=== PATIENT | female | born 1955 | race Caucasian/White ===

== ENCOUNTER → 2017-02-17 | Outpatient (CLI) | payer OTHER | LOC: KOH-I 13:10 | DX: M25.562 Pain in left knee (principal); M25.861 Other specified joint disorders, right knee | CPT/HCPCS: 73562 ==

== ENCOUNTER → 2017-03-13 | Outpatient (CLI) | payer OTHER | LOC: KOH-I 14:30 | DX: M25.561 Pain in right knee (principal); M17.11 Unilateral primary osteoarthritis, right knee; S83.411A Sprain of medial collateral ligament of right knee, initial encounter | CPT/HCPCS: 73721 ==

== ENCOUNTER → 2017-07-02 | Outpatient (CLI) | payer OTHER | LOC: MAMO 13:40 | DX: Z12.31 Encounter for screening mammogram for malignant neoplasm of breast (principal) | CPT/HCPCS: G0202 ==

== ENCOUNTER → 2021-02-21 | Outpatient (CLI) | payer OTHER ==
[~2021-02-21] MED LIST: AVAPRO300 MG PO; CENTANY30 GM TD; CLOTRIMAZOLE-BE30 ML TD; FLEXERIL 10 MG10 MG PO; GABAPENTIN300 MG PO; HYDROCHLOROTHIA25 MG PO; LIPITOR TAB 1010 MG PO; LOPRESSOR50 MG PO; RELAFEN 750 MG750 MG PO; SYNTHROID100 MCG PO; ULTRAM50 MG PO
== END ==
LOC: HEART 5 15:21
DX: I11.9 Hypertensive heart disease without heart failure (principal); R60.9 Edema, unspecified; I08.1 Rheumatic disorders of both mitral and tricuspid valves; I27.20 Pulmonary hypertension, unspecified; Z79.899 Other long term (current) drug therapy
CPT/HCPCS: 93306

== ENCOUNTER → 2021-06-27 | Outpatient (CLI) | payer OTHER | LOC: HEART 5 11:29 | DX: R06.02 Shortness of breath (principal); R94.2 Abnormal results of pulmonary function studies; Z87.891 Personal history of nicotine dependence | CPT/HCPCS: 94060; 94729 ==

== ENCOUNTER → 2021-07-30 | Outpatient (CLI) | payer OTHER | LOC: EROP 11:44 | DX: U07.1 COVID-19 (principal) | CPT/HCPCS: 96365 ==

== ENCOUNTER → 2021-12-27 | Outpatient (CLI) | payer MEDICARE, OTHER | LOC: MAMO 15:20 | DX: Z12.31 Encounter for screening mammogram for malignant neoplasm of breast (principal) | CPT/HCPCS: 77063; 77067 ==